=== PATIENT | male | born 1970 | race Caucasian/White ===

== ENCOUNTER 2025-03-29 10:26 | Emergency (ER) | payer BC, SELFPAY ==
--- NOTE | ~2025-03-29 | XR_ITS ---
EXAMINATION: XR CHEST CLINICAL INFORMATION: chemical exposure inhalation COMPARISON: None available. TECHNIQUE: Frontal view of the chest was obtained. FINDINGS: The cardiac, hilar, and mediastinal contours are normal. The lungs are clear bilaterally. No pneumothorax or effusion. No focal osseous or soft tissue abnormality. XR/XR chest 1V IMPRESSION: No active pulmonary disease. Electronically signed by: Dagoberto Pascual MD 03/29/2025 11:21 AM EDT
[2025-03-29 10:29] VITALS: BP 132/84; PULSE 70; O2SAT 99
[2025-03-29 10:38] VITALS: BP 137/76; PULSE 69; RESP 16; TEMP 35.9; O2SAT 98; BMI 27.1
--- NOTE | 2025-03-29 10:41 | ED_ITS ---
HPI - General Adult General Chief complaint: General Medical Stated complaint: DIZZINESS,NAUSEA POST VAPOR EXPOSURE AT WORK Time Seen by Provider: 03/29/25 10:39 Source: patient and RN notes reviewed Mode of arrival: EMS Limitations: no limitations History of Present Illness ED Provider: Mary Adam PA-C HPI narrative: 54-year-old male with medical history of prostate cancer in remission since 03/2024, pack a day smoker presents to the ED after chemical exposure with accidental inhalation of MC50 which she states is a ?plastic hardener in pellet form. The patient states he is supposed to use a respirator when working with this chemical however did not have a respirator today and inhaled the fumes. Approximately 20 minutes after working with this chemical, patient began to experience dizziness, SOB, abdominal muscle cramping, salivating, nauseousness. Patient reports he went to sit down and his abdominal cramping and nauseousness became worse. Patient states dizziness began to improve while in the ambulance with administration of 2 L nasal cannula. Patient had episode of vomiting while in the department. Denies chest pain, headache, visual changes Related Data Allergies Allergy/AdvReac Type Severity Reaction Status Date / Time Penicillins Allergy Unknown Verified 03/29/25 10:40 Review of Systems 2 Review of Systems: CONST: Negative for fever, body aches and chills. HENT: Negative for neck pain/stiffness, headache, congestion, sore throat, swelling. EYES: Negative for discharge/pain or vision changes. RESP: Negative for cough/hemoptysis and shortness of breath. POS SOB CV: Negative chest pain, difficulty breathing, palpitations. ABD: POS abd cramping, nausea, vomiting : Negative increase frequency, dysuria, blood in urine or stool. MUSC: Negative for muscle aches, edema. SKIN: Negative rash, lesions/sores. NEURO: Negative headache, dizziness, weakness. Yes all other systems are reviewed and are negative PMFSH Social History Social History Smoked in Last 30 Days: Yes Use of substances other than those prescribed or required for medical reasons: Yes Substance Use Type: Marijuana Substance Use Frequency: Monthly Advance Directives: No Advance Directives Information Provided: Yes Do you have a plan to hurt others: No Plan Physical Exam ED Vital Signs: Vital Signs - 24 hr 03/29/25 10:38 03/29/25 11:37 03/29/25 14:14 Temperature 96.7 F L 98.2 F Pulse Rate 69 54 63 Respiratory Rate 16 24 H 16 Blood Pressure 137/76 112/62 113/67 Pulse Oximetry 98 98 98 Oxygen Delivery Method Room Air Room Air Room Air BMI result Body Mass Index 27.1 GENERAL APPEARANCE: ?AxOx4, generally well-appearing, no acute distress. HEENT: ?NC, AT. MMM. EOMI, clear conjunctiva, oropharynx clear. NECK: ?Supple without lymphadenopathy.? No stiffness or restricted ROM. HEART:? Normal rate and regular rhythm, normal S1/S2, no m/r/g LUNGS:? Diminished breath sounds of B/L lung bases without wheezes, crackles, rales ABDOMEN: ?Soft, nondistended, no rigidity, diffuse tenderness throughout all 4 quadrants BACK: No CVAT, no obvious deformity. EXTREMITIES: ?Without cyanosis, clubbing or edema. NEUROLOGICAL: ?Grossly nonfocal. Alert and oriented, moving all 4 extremities. Observed to ambulate with normal gait. Skin: ?Warm and dry without any rash. Medications Administered Discontinued Medications Generic Name Dose Route Start Last Admin Trade Name Ajq PRN Reason Stop Dose Admin Diazepam 5 mg 03/29/25 11:26 03/29/25 11:35 Diazepam 10 Mg/2 Ml Cartridge IVPUSH 03/29/25 11:27 5 mg STAT STA Administration Lactated Ringer's 1,000 mls @ 999 mls/hr 03/29/25 10:49 03/29/25 12:14 Lr IV 03/29/25 11:49 Infused .Q1H1M ONE Infusion Ondansetron HCl 4 mg 03/29/25 10:49 03/29/25 11:08 Ondansetron Hcl 4 Mg/2 Ml Vial IVPUSH 03/29/25 10:50 4 mg ONCE ONE Administration Ondansetron HCl 4 mg 03/29/25 11:25 03/29/25 11:34 Ondansetron Hcl 4 Mg/2 Ml Vial IVPUSH 03/29/25 11:26 4 mg ONCE ONE Administration Medical Decision Making Medical Decision Making MDM Narrative: 54-year-old male with medical history of prostate cancer in remission since 03/2024, pack a day smoker presents to the ED after chemical exposure with accidental inhalation of MC50 which she states is a ?plastic hardener in pellet form. The patient states he is supposed to use a respirator when working with this chemical however did not have a respirator today and inhaled the fumes. Approximately 20 minutes after working with this chemical, patient began to experience dizziness, SOB, abdominal muscle cramping, salivating, nauseousness. Patient reports he went to sit down and his abdominal cramping and nauseousness became worse. Patient states dizziness began to improve while in the ambulance with administration of 2 L nasal cannula. Patient had episode of vomiting while in the department. VSS, BP 137/76, pulse rate of 69, respiratory rate of 16, afebrile with oral temp of 96.7?, O2 saturation 98% on room air. Course 11:49- Patient started on IV fluids, placed 2 L NC, patient complaining of nausea and abdominal cramping, began to hyperventilate due to pain and had a hyperventilation related syncopal episode witnessed by the nurse. Will obtain EKG Patient medicated with 4mg zofran, 5mg diazepam with good effect on nausea and pain. Patient hemodynamically stable with a BP of 109/64, HR of 63, respiratory rate of 18, O2 saturation 100% on 2 L nasal cannula. CXR negative for acute cardiopulmonary process EKG shows normal sinus rhythm without arrhythmia, no ST-elevation/depression, T- wave abnormality, no QT prolongation 15:19- Patient's symptoms have improved significantly after IV fluids, 8 mg Zofran, 5 mg diazepam. Patient looks well, lungs clear to auscultation, patient able to ambulate, no ataxic gait. I counseled patient on the use of respiratory mask when working with chemicals in the future. I counseled patient on strict return precautions including shortness of breath, chest pain, worsening abdominal pain, dizziness, headache, altered mental status. Patient is in agreement with the plan, feels good to go home for self-care. Differential Diagnosis Differential Diagnoses: The differential diagnosis associated with the presentation includes Exposure to chemical MC50 Chemical pneumonitis Bronchospasm Pulmonary edema Carboxyhemoglobinemia Admission/Observation Consideration of admission/observation: Escalation of care including admission/observation considered Lab Data MDM Lab Attestation statement: I reviewed the patient's lab results. 03/29/25 10:56 03/29/25 10:56 Labs: Lab Results 03/29/25 03/29/25 03/29/25 Range/Units 10:56 11:42 12:03 WBC 5.9 (4.8-10.8) X10*3/uL RBC 4.82 (4.60-5.80) X10*6/uL Hgb 14.9 (14.0-18.0) g/dl Hct 43.3 (42.0-52.0) % MCV 89.8 (80.0-98.0) fL MCH 30.9 (27.0-33.0) pg MCHC 34.4 (31.0-36.0) g/dl RDW 13.6 (11.0-16.0) % Plt Count 160 (160-400) X10*3/uL MPV 10.0 (9.4-12.4) fL Immature Gran % (Auto) 0.3 (0.0-0.4) % Neut % (Auto) 79.7 H (45-73) % Lymph % (Auto) 11.2 L (20-40) % Lanier % (Auto) 6.8 (2-11) % Eos % (Auto) 1.5 (0-4) % Baso % (Auto) 0.5 (0-2) % Lymph # (Auto) 0.7 L (1.2-4.9) X10*3/uL Lanier # (Auto) 0.4 (0.1-1.2) X10*3/uL Eos # (Auto) 0.1 (0.0-0.4) X10*3/uL Baso # (Auto) 0.0 (0.0-0.2) X10*3/uL Abs Immat Gran (auto) 0.02 (0.00-0.03) X10*3/uL Absolute Neuts (auto) 4.7 (2.0-8.3) x10*3/uL Absolute Nucleated RBC 0.000 (0.0-0.012) X10*3/uL Nucleated RBC % (auto) 0.0 (0.0-0.2) /100WBC VBG pH 7.39 (7.32-7.43) VBG pCO2 45 mmHg VBG pO2 29 mmHg VBG HCO3 27 H (22-26) mmol/L VBG O2 Saturation 42.0 % VBG Base Excess 2.2 mmol/L Sodium 142 (135-145) mmol/L Potassium 4.4 (3.3-5.1) mmol/L Chloride 108 (96-108) mmol/L Carbon Dioxide 26 (22-29) mmol/L Anion Gap 12 (12-20) BUN 17 H (9-16) mg/dL Creatinine 0.85 (0.5-1.4) mg/dL Estim Creat Clear Calc 109.0 Estimated GFR > 60 POC Glucose 97 (60-115) mg/dL Random Glucose 116 H (60-115) mg/dL Calcium 9.1 (8.4-10.2) mg/dL Total Bilirubin 0.3 (0.0-1.0) mg/dL AST 19 (5-37) U/L ALT 10 (0-40) U/L Alkaline Phosphatase 58 (39-117) U/L Total Protein 6.7 (6.5-8.0) g/dL Albumin 4.3 (3.5-5.0) g/dL Independent Interpretation I performed an independent interpretation of an: EKG and Plain X-Ray Interpretation: I personally interpreted the CXR, no pulmonary edema, no pneumothorax, no pleural effusion, no infiltrates, no consolidations, I agree with the radiologist's interpretation. I personally interpreted the EKG which revealed normal sinus rhythm, no arrhythmia, no ST-elevation, depression, T-wave abnormality Vent. Rate : 60 BPM Atrial Rate : 60 BPM P-R Int : 140 ms QRS Dur : 102 ms QT Int : 422 ms P-R-T Axes : 55 64 30 degrees QTcB Int : 422 ms Normal sinus rhythm Normal ECG No previous ECGs available Radiology Impression Discussion of test interpretation with radiology: I have reviewed the radiologist's reading. Radiologist Impression: CXR FINDINGS: The cardiac, hilar, and mediastinal contours are normal. The lungs are clear bilaterally. No pneumothorax or effusion. No focal osseous or soft tissue abnormality. XR/XR chest 1V IMPRESSION: No active pulmonary disease. Electronically signed by: Dagoberto Pascual MD 03/29/2025 11:21 AM EDT Dictated By: Dagoberto Pascual MD Signed By: <Electronically signed by Dagoberto Pascual MD in OV> 03/29/25 1121 External Record Review External record reviewed: Inpatient record, Office record and Outpatient record Discharge Plan Discharge Clinical Impression: Exposure to chemical inhalation Patient Disposition: Home, Self-Care Additional Instructions: You were evaluated in the ED after exposure to chemical MC-50, on review of the safety data sheet inhalation of this chemical is treated by supportive care. Your lab work did not show any evidence of blood gas abnormality. Your chest x- ray was negative for congestion of your lungs, consolidation, or fluid. Your EKG showed normal sinus rhythm. You were medicated with IV fluids, 8 mg of Zofran, and 5 mg of diazepam which had a great effect on your symptoms. I recommend you use a respirator when in contact with this chemical in the future. Please follow up with your primary care doctor to ensure improvement. Please return to the emergency department if you experience fevers over 100.4?, chest pain, shortness of breath, worsening abdominal pain, dizziness, lightheadedness, difficulty breathing, or any new/worsening/concerning symptoms. Stand Alone Forms: Work/School Release Print Language: Korean
[2025-03-29 11:00] LABS: MANUAL DIFF FLAG NO
[2025-03-29 11:03] LABS: Hematocrit 43.3 % (42.0-52.0); Hemoglobin 14.9 g/dl (14.0-18.0); Imm Gran Abs Auto 0.02 X10*3/uL (0.00-0.03); Imm Gran Pct Auto 0.3 % (0.0-0.4); Lymphocytes Absolute Auto 0.7 X10*3/uL (1.2-4.9); Mean Corpuscular HGB Conc 34.4 g/dl (31.0-36.0); Mean Corpuscular Hemoglobin 30.9 pg (27.0-33.0); Mean Corpuscular Volume 89.8 fL (80.0-98.0); NRBC Abs Auto 0.000 X10*3/uL (0.0-0.012); NRBC Pct Auto 0.0 /100WBC (0.0-0.2); Platelet Count 160 X10*3/uL (160-400); Red Blood Count 4.82 X10*6/uL (4.60-5.80); White Blood Count 5.9 X10*3/uL (4.8-10.8)
[2025-03-29] MEDS: Lactated Ringers 1,000 ML 999 ML IV (11:05)
[2025-03-29 11:26] LABS: Alanine Aminotransferase 10 U/L (0-40); Albumin Level 4.3 g/dL (3.5-5.0); Alkaline Phosphatase 58 U/L (39-117); Anion Gap 12 (12-20); Aspartate Amino Transferase 19 U/L (5-37); Blood Urea Nitrogen 17 mg/dL (9-16); Calcium 9.1 mg/dL (8.4-10.2); Carbon Dioxide 26 mmol/L (22-29); Chloride 108 mmol/L (96-108); Creatinine Clr Calc Pharmacy 109.0; Estimated Glomerular Filt Rate > 60; Potassium 4.4 mmol/L (3.3-5.1); Sodium 142 mmol/L (135-145); Total Protein 6.7 g/dL (6.5-8.0)
[2025-03-29] MEDS: diazePAM 10 MG/2 ML CARTRIDGE 5 MG IVPUSH (11:35)
[2025-03-29 11:37] VITALS: BP 112/62; PULSE 54; RESP 24; O2SAT 98
--- NOTE | 2025-03-29 11:43 | PC.NURSE ---
This RN was medicating for primary nurse, pt was in extreme pain, got pae, diaphoretic and stated I am going to pass out. Pt indeed did pass out, this RN placed pt legs up in the bed, vitals and POC obtained, PA aware, pt moved into room for monitoring.
[2025-03-29 11:45] LABS: Glucose, Whole Blood 97 mg/dL (60-115)
[2025-03-29 12:06] LABS: VBG HCO3 27 mmol/L (22-26); VBG O2 % Saturation 42.0 %
--- NOTE | 2025-03-29 12:09 | ECG_ITS ---
Test Reason : SYNCOPE Blood Pressure : */* mmHG Vent. Rate : 60 BPM Atrial Rate : 60 BPM P-R Int : 140 ms QRS Dur : 102 ms QT Int : 422 ms P-R-T Axes : 55 64 30 degrees QTcB Int : 422 ms Normal sinus rhythm Normal ECG No previous ECGs available Referred By: Kia Hernandez Electronically Signed By: ARIN PELAEZ MD
--- OUTSIDE RECORDS SUMMARY | 2025-03-29 12:34 | XMS_ITS ---
Author Name [facility] Organization Unknown Allergies Allergen Reaction Severity Comment Documented Date Source Statu s PENICILLINS HIVES 07/30/2023 CCT active Problems Problem Status Onset Date Problem Type Date of Resoluti on Source Prostate cancer (HCC) active EncounterDiagnosisAct CCT Encounters Encounter Type Encounter Reason Primary Diagnosis Location Date Ambulatory Malignant neoplasm of prostate Malignant neoplasm of prostate [facility]23 [facility] 07/15/2023 [facility] 07/09/2023 Care Team Organization Name Specialty Phone Email Start Date End [facility] 09/01/2023 [facility] NO PCP Primary Care 07/30/2023 07/30/2023 [facility] PCP,No Primary Care 07/09/2023 10/28/2024 [facility] Omar Vasquez Primary Care 06/19/20222023
--- OUTSIDE RECORDS SUMMARY | 2025-03-29 12:34 | XMS_ITS | Clinical Summary ---
Author Organization [facility] Address [address] [place] [address] Care Team Providers Care Chronic Disease Epidemiologist Name Role Phone Deisi Granados MD Primary Care Prov ider Social History Tobacco Use Types Packs/Day Years Used Date Smoking Tobacco: Never Assessed Sex and Gender Information Value Date Recorded Sex Assigned at Male 07/01/2023 2:50 PM EST Gender Identity Not on file Sexual Orientation Not on file Job Start Date Occupation Industry Not on file Not on file Not on file Plan of Treatment Health Maintenance Due Date Last Done Comments Hepatitis B Vaccines (1 of 3 - 3-dose series) 1970 Hepatitis C Screening 1970 COVID-19 Vaccine (#1) 03/29/1971 Depression Screening 1982 Preventative Health Evaluation 1988 DTap / Tdap / Td (1 - Tdap) 1989 Colon Cancer Screening (Colonoscopy) 2015 Shingrix-Zoster Vaccine (1 of 2) 2020 Influenza Vaccine (#1) 2025 Pneumococcal Vaccine Aged Out No long er eligible based on patient's age to complete this topic RSV Ped < 20 months Aged Out No longe r eligible based on patient's age to complete this topic Care Teams Chronic Disease Epidemiologist Relationship Specialty Start Date End Date Deisi Granados MD PCP - General Internal Medicine 07/01/23
--- OUTSIDE RECORDS SUMMARY | 2025-03-29 12:34 | XMS_ITS | Encounter Summary ---
Author Organization [facility] Address [address] [place] [address] Care Team Providers Care Cashier Or Checker Stock Clerk Name Role Phone Pcp, No Primary Care Provider Unavailgodwin e Adolfo Landis MD Unavailable [phone] Encounter Details Date Type Department Care Team (Late st Contact Info) Description 07/11/2023 Scanned Document [facility] [place] [address] [place] [address] [phone] Jordon Cullen MD [address] [address] Social History Tobacco Use Types Packs/Day Years Used Date Smoking Tobacco: Never Assessed Comments Unknown Sex and Gender Information Value Date Recorded Sex Assigned at Unknown 07/02/2023 4:04 PM EST Legal Sex Male 10:10 AM EST Gender Identity Male 07/02/2023 4:04 PM EST Sexual Orientation Not on file documented as of this encounter Plan of Treatment Not on file documented as of this encounter Visit Diagnoses Not on filedocumented in this encounter Care Teams Cashier Or Checker Stock Clerk Relationship Specialty Start Date End Date Pcp, No PCP - General General Medicine 07/02/23 Adolfo Landis MD Urology 07/30/23 documented as of this encounter
--- OUTSIDE RECORDS SUMMARY | 2025-03-29 12:34 | XMS_ITS | Clinical Summary ---
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 High prostate specific antigen (PSA) 03/22/2023 Sebaceous cyst 02/14/2011 Chronic obstructive pulmonar y disease ([facility] V24, [facility] V28) 01/12/2008 Overview (08/28/2024): 20 pack years Immunizations Name Administration Dates Next Due Influenza Quadravalent, MDCK , 0.5ml, preservative free (Flucelvax) 6mo and older 06/17/2021 Td Tetanus diptheria (Tdvax) 7yo and older 12/11 Tdap Tetanus diptheria acell ular pertussis (Boostrix; Adacel) 7yo and older 01/12/2008 Surgical History Surgery Date Site/Laterality Comments OTHER SURGICAL HISTORY PROCEDURE: DENIES PREVIOUS SURGERY Medical History Medical History Date Comments Historical Medical DX 01/12/2008 DX:COPD; C OMMENT: 20 pack years Anxiety DX:Anxiety Joint pain DX:Joint pain Family History Medical History Relation Name Comments No Known Problems Aunt No Known Problems Brother Alcohol/Drug Father Heart attack Father Other: dementia Maternal Grandfather No Known Problems Maternal Grandmother Other cancer Mother ovarian No Known Problems Other No Known Problems Paternal Grandfather No Known Problems Paternal Grandmother No Known Problems Sister No Known Problems Uncle Blindness Neg Hx Cataracts Neg Hx Glaucoma Neg Hx Macular degeneration Neg Hx Strabismus Neg Hx Relation Name Status Comments Aunt Brother Father Maternal Grandfather Maternal Grandmother Mother Other Paternal Grandfather Paternal Grandmother Sister Uncle Social History Tobacco Use Types Packs/Day Years Used Date Smoking Tobacco: Former Cigarettes Q uit: 10/30/2010 Smokeless Tobacco: Never Alcohol Use Standard Drinks/Week Comments No 0 (1 standard drink = 0.6 oz pur e alcohol) Sex and Gender Information Value Date Recorded Sex Assigned at Not on file Legal Sex Male 5:53 PM EST Gender Identity Not on file Sexual Orientation Not on file Obstetrics History Last Filed Vital Signs Vital Sign Reading Time Taken Comments Blood Pressure 116/67 03/22/2023 3:36 PM EDT Pulse 80 03/22/2023 3:36 PM EDT Temperature - - Respiratory Rate - - Oxygen Saturation - - Inhaled Oxygen Concentration - - Weight 92.5 kg (204 lb) 03/22/2023 3:36 PM EDT Height 182.9 cm (6') 03/22/2023 3:36 PM EDT Body Mass Index 27.67 03/22/2023 3:36 PM EDT Plan of Treatment Health Maintenance Due Date Last Done Comments Hepatitis B Vaccines (1 of 3 - 19+ 3-dose series) 1989 Pneumococcal Vaccine: 50+ Years (1 of 2 - PCV) 1989 Zoster Vaccines (1 of 2) 2020 Colorectal Cancer Screening: Colonoscopy 07/21/2022 HIV Screening 07/21/2022 Hepatitis C Screening 07/21/2022 Lung Cancer Screening (Low Dose CT) 07/21/2022 Social Influencers of Health Screening 07/21/2022 COVID-19 Vaccine (4 - 2023-2 5 season) 2024 07/25/2021, 12/29/2020, 12/06/2020 Depression Screening 08/12/2024 Influenza Vaccine (#1) 2025 06/17/2021 Cholesterol Screening (Lipid Panel) 03/09/2027 03/09/2022 DTaP,Tdap,and Td Vaccines (3 - Td or Tdap) 12/12/2027 12/11/2017, 01/12/2008 HIB Vaccines Aged Out No longer eligi ble based on patient's age to complete this topic HPV Vaccines Aged Out No longer eligi ble based on patient's age to complete this topic Hepatitis A Vaccines Aged Out No long er eligible based on patient's age to complete this topic IPV Vaccines Aged Out No longer eligi ble based on patient's age to complete this topic MMR Vaccines Aged Out No longer eligi ble based on patient's age to complete this topic Meningococcal ACWY Vaccine Aged Out N o longer eligible based on patient's age to complete this topic Meningococcal B Vaccine Aged Out No l onger eligible based on patient's age to complete this topic RSV Immunization Patients Under 20 months Aged Out No longer eligible b ased on patient's age to complete this topic Varicella Vaccines Aged Out No longer eligible based on patient's age to complete this topic Procedures Procedure Name Priority Date/Time Associated Diagnosis Comments LIPID PANEL Routine 03/09/2022 from Last 3 Months or Most Recently Relevant to Health Maintenance Results * Lipid panel (03/09/2022) LDL/HDL Ratio 3 0 - 4 Triglycerides 102 0 - 150 mg/dL Cholesterol 154 0 - 200 mg/dL HDL 47 >=40 mg/dL LDL Cholesterol 87 0 - 100 mg/dL Blood Venous blood specimen / Unknown Historical Provider LAB BLOOD ORDERABLES Melissa l Result from Last 3 Months or Most Recently Relevant to Health Maintenance Insurance [facility] Care Teams Artificial Flower Maker Relationship Specialty Start Date End Date Deisi Granados MD PCP - General 07/01/23
[2025-03-29 14:14] VITALS: BP 113/67; PULSE 63; RESP 16; TEMP 36.8; O2SAT 98
--- NOTE | 2025-03-29 14:19 | PC.NURSE ---
Patient feeling much better at this time. Denies pain and SOB O2 100% 2L NC titrated to RA O2 remained at 100% denies SOB/WOB, Patient tolerated PO intake apple juice and jello IV fluid completed. Provider updated
[2025-03-29 15:52] VITALS: BP 106/73; PULSE 67; RESP 14; TEMP 36.8; O2SAT 100
== END 2025-03-29 15:53 | disposition home or self-care (01) ==
PROVIDERS: Emergency Provider Emergency Medicine
DX: T59.891A Toxic effect of other specified gases, fumes and vapors, accidental (unintentional), initial encounter (principal); R42 Dizziness and giddiness; R55 Syncope and collapse; R10.9 Unspecified abdominal pain; R06.4 Hyperventilation; Y92.69 Other specified industrial and construction area as the place of occurrence of the external cause; Z72.0 Tobacco use
CPT/HCPCS: 36415; 71045; 80053; 82803; 82947; 85025; 93005; 96361; 96374; 96375; 99284; 99285; J2405; J3360; J7120

== ENCOUNTER → 2025-03-29 10:49 | Outpatient (BNV) | payer OTHER, SELFPAY | PROVIDERS: Emergency Provider Emergency Medicine; Visit Provider Radiology Diagnostic Radiology | DX: R42 Dizziness and giddiness (principal); R11.2 Nausea with vomiting, unspecified; Z77.098 Contact with and (suspected) exposure to other hazardous, chiefly nonmedicinal, chemicals; Z04.2 Encounter for examination and observation following work accident | CPT/HCPCS: 71045 ==

== ENCOUNTER → 2025-03-29 12:09 | Outpatient (BNV) | payer BC, SELFPAY | PROVIDERS: Emergency Provider Emergency Medicine; Visit Provider Internal Medicine Cardiovascular Disease | DX: R55 Syncope and collapse (principal) | CPT/HCPCS: 93010 ==